=== PATIENT | male | born 1990 | race Caucasian/White ===

== ENCOUNTER 2024-07-06 08:10 | Emergency (ER) | payer BC, OTHER ==
[2024-07-06] MEDS: Diphtheria,Pertussis(Acell),Tetanus Vaccine 0.5 ML Syringe IM ONE (08:39)
[2024-07-06] MEDS: Lidocaine 2% 5 ML SDV INJECT ONE (09:02)
== END 2024-07-06 10:14 | disposition home or self-care (01) ==
LOC: MW.ED 08:10
DX: S61.011A Laceration without foreign body of right thumb without damage to nail, initial encounter (principal); Z23 Encounter for immunization; W01.0XXA Fall on same level from slipping, tripping and stumbling without subsequent striking against object, initial encounter
CPT/HCPCS: 12001; 29125; 73130-26-RT; 73130-RT; 90471; 90715; 99283; 99283-25; J3490